=== PATIENT | female | born 1930 | race Caucasian/White ===

== ENCOUNTER → 2016-10-04 | Outpatient (CLI) | payer OTHER, BC ==
[~2016-10-04] MED LIST: BENADRYL25 MG PO; CALCIUM 600 +1 EAC1 PO; CENTRUM SILVER1 EAC4 PO; COLLAGEN PO; DICLOFENAC SOD50 M1 PO; DIOVAN HCT 1601 EAC1 PO; FLAX OIL1000 MG PO; GLUCOSAMINE HC500 MG PO; HARD NAILS2500 MCG PO; MELOXICAM7.5 MG PO; PEPCID40 MG PO; PREDNISONE 20 M20 MG PO; PREMARIN0.3 MG PO; ZANAFLEX4 MG PO
== END ==
LOC: RAD 12:13
DX: R05 Cough (principal)

== ENCOUNTER → 2016-11-03 | Outpatient (CLI) | payer OTHER, BC ==
--- NOTE | ~2016-11-03 | S ---
[facility] [place] [address] SURGICAL PATH RPT PROCEDURE Name: MANE HANSEN Room #: REG [facility] MShaka.#: [id number] Admission: 11/03/16 Date of : 28 Discharge: Report #: [id number] Path Case #: [id number] PATHOLOGY REPORT COLLECTION DATE: 11/03/2016 RECEIVED DATE: 11/03/2016 SUBMITTING PHYS: Dr. Shyam Helms OTHER PHYS: Dr. 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 - Background breast tissue showing proliferative fibrocystic changes with adenosis, usual ductal hyperplasia as well as columnar cell change. - Negative for atypia or malignancy. COMMENT: Adult Probation Officer slides were co-reviewed by Dr. Liseth Ferrara. PATHOLOGIST: Cari Chavez M.D. REPORT ELECTRONICALLY SIGNED BY: Cari Chavez M.D. DATE/TIME: 11/07/2016 16:47 * * * * * * * * * * * * GROSS PATHOLOGY: Received in formalin labeled "Mane Hansen, right breast," are multiple needle cores of yellow-humphries fibrofatty tissue measuring 3.8 x 3.2 x 0.2 cm in aggregate dimensions. Also received is a plastic cassette containing multiple cores of yellow-humphries fibrofatty tissue measuring 1.8 x 1.5 x 0.2 cm in aggregate dimensions. The tissue in the cassette is transferred to cassette A1, and the remaining tissue is submitted in its entirety in cassette A2 and A3. The cold ischemic time is 6 minutes. The total formalin fixation time is 32 hours. (COUNTS INCLUDE 234 BEDS AT THE [facility]; 11/04/2016) CLINICAL HISTORY: Right breast calcs INITIAL CPT CODE(S): [facility] [place] [address] SURGICAL PATH RPT PROCEDURE Name: MANE HANSEN Room #: REG CLMinnie Owens.#: [id number] Admission: 11/03/16 Date of : 28 Discharge: Report #: [id number] Path Case #: [id number]; [id number] Professional services performed by [facility] at [address] , [place] [address] Technical services performed by [facility] at [address] [place] [address], [facility] [address] [address]. [facility] [address] [place] [address] PHONE: [phone] DIRECTOR: Son Clay M.D. * * * END OF REPORT * * *
== END | disposition home or self-care (01) ==
LOC: RAD 01:49
DX: R92.0 Mammographic microcalcification found on diagnostic imaging of breast (principal)

== ENCOUNTER → 2017-06-05 | Outpatient (CLI) | payer OTHER, BC | LOC: RAD 02:44 | DX: R92.8 Other abnormal and inconclusive findings on diagnostic imaging of breast (principal) ==

== ENCOUNTER → 2018-04-25 | Outpatient (CLI) | payer OTHER, BC ==
[~2018-04-25] VITALS: Ht 165.1 cm; Wt 54.4 kg
[~2018-04-25] MED LIST changes: +MOBIC7.5 MG PO; +NEXIUM40 MG PO
--- NOTE | ~2018-04-25 | P ---
[facility] [place] [address] PROCEDURE REPORT Name: MANE HANSEN Room #: REG [facility]#: [id number] Admission: 04/25/18 Attend Phys: Travon Louie Discharge: Date of : 28 Report #: [id number] THIS REPORT FOR: //name// CC: Travon Bautista DATE OF SERVICE: 04/25/2018 PROCEDURE PERFORMED: Colonoscopy. HISTORY OF PRESENT ILLNESS: The patient is an 87-year-old female with a history of anemia, reportedly with hemoglobin in the 8 range recently. She denies any bright red blood per rectum or melena. No family history of colon cancer. She has never had a colonoscopy or upper endoscopy in the past. EGD was just performed today, which showed a mild gastritis, but otherwise negative. The patient had a recent right total knee arthroplasty. She was given 1 gram of Ancef today prior to her procedure. DESCRIPTION OF PROCEDURE: The risks and benefits of the procedure were explained to the patient, those risks including but not limited to bleeding, perforation and the risk of sedation. She understood these risks and gave informed consent. Sedation was given using propofol per anesthesia. Next, a digital rectal exam was initially performed, which was normal. Next, using a standard Olympus colonoscope, the scope was placed in the patient's anus and advanced under direct vision to the cecum. The overall prep was excellent. The cecum and ileocecal valve were normal in appearance. There were scattered diverticula noted throughout the ascending, transverse, descending and sigmoid colon, otherwise normal. The rectal mucosa was normal. On retroflexion, no abnormalities were noted. The scope was then withdrawn and the procedure terminated. The patient tolerated the procedure well. IMPRESSION: 1. David diverticulosis, no evidence of inflammation. 2. Otherwise, normal colonoscopy. RECOMMENDATIONS: Await biopsy results from upper endoscopy. If negative and anemia persists, would recommend Hemoccult testing stools. If positive, consider M2 capsule endoscopy for further evaluation of the small bowel. Thank you for allowing me to participate in her care. <ELECTRONICALLY SIGNED> By: Travon Graf MD 04/27/18 1531 [id number] Travon Graf MD /nt
--- NOTE | ~2018-04-25 | P ---
[facility] [place] [address] PROCEDURE REPORT Name: MAEN HANSEN [id number] Admission: 04/25/18 Attend Phys: Travon Louie Discharge: Date of : 28 Report #: [id number] THIS REPORT FOR: //name// CC: Travon Bautista DATE OF SERVICE: 04/25/2018 PROCEDURE PERFORMED: Upper endoscopy with biopsies. HISTORY OF PRESENT ILLNESS: The patient is an 87-year-old female with a history of anemia, reportedly last hemoglobin was in the 8 range. She denies any obvious bright red blood per rectum or melena. She has never had any endoscopy in the past. She had a right total knee several months ago, had been taking meloxicam for several months, but then off the medicine for several weeks, restarted meloxicam recently as well as Nexium within the last 1-2 weeks. She denies any dysphagia. She denies any abdominal pain. Her weight has been stable. No family history of colon cancer. Plan is for EGD and colonoscopy today. DESCRIPTION OF PROCEDURE: The risks and benefits of the procedure were explained to the patient, those risks including but not limited to bleeding, perforation, the risk of sedation. She understood these risks and gave informed consent. Sedation was given using propofol per anesthesia. Next, using a standard Olympus upper endoscope, the scope was placed in the patient's mouth and advanced under direct vision through the esophagus, stomach and into the second portion of the duodenum. The larynx was normal in appearance. The esophagus was normal throughout. The GE junction was normal. There was a mild gastritis noted in the fundus and upper body. No evidence of ulcers or erosions. Biopsies were obtained to rule out H. pylori. The pylorus was normal and patent. The duodenal bulb, first and second portion were all normal. Biopsies were obtained to rule out the possibility of celiac sprue. The scope was then withdrawn and the procedure terminated. The patient tolerated the procedure well. IMPRESSION: 1. Mild gastritis. 2. Otherwise, normal upper endoscopy. RECOMMENDATIONS: 1. Await biopsy results. 2. Continue daily PPI therapy. 3. We will proceed with colonoscopy next today. [address] [address] PROCEDURE REPORT Name: MANE HANSEN Room #: REG [facility].#: [id number] Admission: 04/25/18 Attend Phys: Travon Louie Discharge: Date of : 28 Report #: [id number] Thank you for allowing me to participate in her care. <ELECTRONICALLY SIGNED> By: Travon Graf MD 04/27/18 1531 [id number] Travon Graf MD /nt
--- NOTE | ~2018-04-25 | PATH ---
[facility] [place] [address] PATHOLOGY RPT PROCEDURE Name: MANE HANSEN Room #: REG [facility].#: [id number] Admission: 04/25/18 Date of : 28 Discharge: Report #: [id number] Path Case #: [id number] [facility] Accession Number: [id number] . 01 Material submitted: . PART A: BX OF DUODENUM R/O SPRUE PART B: BX OF GASTRIC GASTRITIS . 01 Clinical history: . Pre-OP DX: Anemia Post-OP DX: Gastritis, diverticulosis . 02 Diagnosis: A. Small bowel mucosa, duodenum rule out sprue: - No diagnostic abnormalities present. - Negative for villous blunting or increase in intraepithelial lymphocytes. . B. Gastric mucosa, gastritis, endoscopic biopsy: - Mild chronic active gastritis. - Negative for intestinal metaplasia or atrophy. - Negative for Helicobacter pylori (properly controlled immunohistochemical stain performed). LBQ/04/26/2018 . 02 Comment: An intensive search for Helicobacter pylori-like organisms is negative. Absence of such organisms does not entirely exclude the possibility and may be due to sampling. Other possible etiologies may include chemical gastritis, autoimmune gastritis, gastritis associated with inflammatory bowel disease. Please correlate with clinical, endoscopic, and microbiological studies if clinically indicated. (IUV/db; 04/26/18) . 02 Electronically signed: . Cari Chavez MD, Pathologist NPI- [id number] . 01 Gross description: . A. Received in formalin labeled "Mane Hansen, BX of duodenum, rule out sprue," are 3 segments of hugo soft tissue measuring 1.2 x 0.8 x 0.3 cm in aggregate dimensions and ranging from 0.3 to 0.6 cm in maximum dimension. The specimen is submitted entirely in cassette A1. . B. Received in formalin labeled "Mane Hansen, BX gastric, gastritis," are 3 segments of hugo soft tissue measuring 0.9 x 0.6 x 0.3 cm in aggregate dimensions and ranging from 0.3 to 0.4 cm in maximum dimension. The [address] [address] PATHOLOGY RPT PROCEDURE Name: MANE HANSEN Room #: REG [facility]#: [id number] Admission: 04/25/18 Date of : 28 Discharge: Report #: [id number] Path Case #: [id number] specimen is submitted entirely in cassette B1. (TSD; 04/25/2018) TOB/TOB . 02 Pathologist provided ICD-10: K29.50, D64.9 . 02 CPT . 812956, 549201, V41395 Specimen Comment: A courtesy copy of this report has been sent to Specimen Comment: [phone], . Specimen Comment: Report sent to / DR KELLY Specimen Comment: A duplicate report has been generated due to demographic updates. Performed at: [address] [id number] MD Olegario Tom MD Phone: [phone] Performed at: [address] [id number] MD Cari Chavez MD Phone: [phone]
== END | disposition home or self-care (01) ==
LOC: GI 07:00
DX: K57.30 Diverticulosis of large intestine without perforation or abscess without bleeding (principal); K29.50 Unspecified chronic gastritis without bleeding; Z98.890 Other specified postprocedural states; Z96.651 Presence of right artificial knee joint; Z90.710 Acquired absence of both cervix and uterus; Z98.41 Cataract extraction status, right eye; Z98.42 Cataract extraction status, left eye; Z79.899 Other long term (current) drug therapy
CPT/HCPCS: 62110; 62900

== ENCOUNTER → 2018-09-25 | Outpatient (CLI) | payer OTHER, BC | LOC: RAD 10:03 | DX: Z12.31 Encounter for screening mammogram for malignant neoplasm of breast (principal) ==